=== PATIENT | male | born 1980 | race Caucasian/White ===

== ENCOUNTER 2018-07-04 09:02 | Emergency (ER) | payer SELFPAY ==
[2018-07-04 10:04] VITALS: TEMP 97.3
[2018-07-04 10:59] LABS: BASOPHILS % (AUTO) 0 % (0-3); EOSINOPHILS % (AUTO) 1 % (0-9); HEMATOCRIT 36 % (39-53); HEMOGLOBIN 11.7 gm/dl (13.5-17.7); LYMPHOCYTES % (AUTO) 17.2 % (10-50); MEAN CORPUSCULAR HEMOGLOBIN 28.9 pg (27.0-32.0); MEAN CORPUSCULAR HGB CONC 32.9 gm/dl (32.0-36.0); MEAN CORPUSCULAR VOLUME 88 fL (80-100); MONOCYTES % (AUTO) 7.5 % (0-12); NEUTROPHILS % (AUTO) 73.5 % (37-80)
[2018-07-04 11:12] LABS: ALBUMIN 2.2 gm/dl (3.4-5.0); BILIRUBIN,TOTAL 0.3 mg/dl (0.2-1.0); CALCIUM 8.2 mg/dl (8.5-10.1); CARBON DIOXIDE 30.4 mEq/L (21-32); CREATININE 1.02 mg/dl (0.80-1.30); POTASSIUM 4.1 mMol/L (3.5-5.1); TOTAL PROTEIN 7.2 gm/dl (6.4-8.2)
[2018-07-04 13:52] VITALS: BP 116/68; PULSE 78; RESP 18; O2SAT 97
== END 2018-07-04 13:20 | DRG 923 ==
LOC: EDBD 09:02 → ED 09:02
DX: T34 Frostbite with tissue necrosis (principal); T33.531A Superficial frostbite of right finger(s), initial encounter; X31.XXXA Exposure to excessive natural cold, initial encounter
CPT/HCPCS: 36415; 80053; 85025; 99283; 99284; A6446

== ENCOUNTER 2018-07-06 18:06 | Emergency (ER) | payer MEDICARE, MEDICAID ==
[2018-07-06 18:46] VITALS: TEMP 97.5
[2018-07-06 20:04] VITALS: BP 115/74; PULSE 89; RESP 16; O2SAT 100
== END 2018-07-06 20:05 | DRG 923 ==
LOC: ED 18:06
DX: T33.99XA Superficial frostbite of other sites, initial encounter (principal)
CPT/HCPCS: 99283; A6232; A6402; A6446

== ENCOUNTER 2018-12-26 11:45 | Emergency (ER) | payer MEDICARE, OTHER ==
[2018-12-26 11:49] VITALS: BP 123/74; PULSE 98; RESP 18; TEMP 98.9; O2SAT 100
[2018-12-26] MEDS ORDERED: ALTEPLASE/CATHFLO 2 MG PDS IV ONE ×2 (11:56→11:59)
== END 2018-12-26 14:32 | DRG 316 ==
LOC: ED 11:45
DX: T82.898A Other specified complication of vascular prosthetic devices, implants and grafts, initial encounter (principal); B95.62 Methicillin resistant Staphylococcus aureus infection as the cause of diseases classified elsewhere
CPT/HCPCS: 99282; 99283; J2997